=== PATIENT | male | born 1995 | race Caucasian/White ===

== ENCOUNTER → 2017-05-16 | Outpatient (CLI) | payer BC | LOC: FIMAGING 14:00 | PROVIDERS: ATTEND Orthopaedic Surgery Hand Surgery | DX: S62.011A Displaced fracture of distal pole of navicular [scaphoid] bone of right wrist, initial encounter for closed fracture (principal) ==

== ENCOUNTER 2018-09-07 22:05 | Emergency (ER) | payer BC | END 2018-09-08 00:22 | disposition home or self-care (01) ==